=== PATIENT | female | born 1945 | race Caucasian/White ===

== ENCOUNTER 2017-12-24 02:39 | Outpatient (RCR) | payer MEDICARE, MEDICAID, SELFPAY ==
[2017-12-24] MEDS: Normal Saline Flush 10 ML SYR IVP (10:00)
[2017-12-24 10:12] LABS: Absolute Basophil Count 0.04 k/cumm (0.0-0.2); Absolute Eosinophil Count 0.11 k/cumm (0.0-0.7); Absolute Lymphocyte Count 0.67 k/cumm (1.2-3.4); Absolute Monocyte Count 0.69 k/cumm (0.11-0.7); Absolute Neutrophil Count 4.66 k/cumm (1.2-6.7); Basophils % 0.6; Eosinophils % 1.8; HCT 35.6 % (36.0-46.0); HGB 11.9 g/dL (12.0-15.5); Immature Grans % 1.6; Lymphocytes % 10.7; Mean Corp. HGB Concentration 33.4 g/dL (32.0-36.0); Mean Corpuscular Hemoglobin 31.4 pg (27.0-33.0); Mean Corpuscular Volume 93.9 fL (80-95); Mean Platelet Volume 11.1 fL (8.0-11.0); Neutrophils % 74.3; Platelet Count 151 x1000/uL (130-400); RBC 3.79 m/cumm (4.00-5.20); RBC Distribution Width 14.8 % (11.7-14.6); White Blood Cell Count 6.27 k/cumm (4.4-10.8)
[2017-12-24 10:25] LABS: ALT 52 U/L (12-78); AST 45 U/L (15-37); Albumin 2.5 g/dL (3.4-5.0); Alkaline Phosphatase 134 U/L (46-116); Anion Gap 8.6 mmol/L (3-11); BUN 6 mg/dL (7-18); Bilirubin, Total 0.6 mg/dL (0.2-1.0); CO2 26.4 mmol/L (21.0-32.0); CREATININE 0.65 mg/dL (0.55-1.02); Calcium 8.6 mg/dL (8.5-10.1); Chloride 99 mmol/L (98-107); Glucose 189 mg/dL (70-100); Magnesium 1.8 mg/dL (1.8-2.4); Potassium 3.5 mmol/L (3.5-5.1); Sodium 134 mmol/L (136-145); Total Protein 6.4 g/dL (6.4-8.2)
[2017-12-31 09:59] LABS: Abs Immature Grans 0.14 k/cumm (0.0-0.09); HGB 11.4 g/dL (12.0-15.5); Mean Corp. HGB Concentration 33.5 g/dL (32.0-36.0); Mean Corpuscular Volume 92.4 fL (80-95); Platelet Count 120 x1000/uL (130-400); RBC 3.68 m/cumm (4.00-5.20); White Blood Cell Count 4.13 k/cumm (4.4-10.8)
[2017-12-31] MEDS: Normal Saline Flush 10 ML SYR IVP (09:59)
[2017-12-31 10:09] LABS: ALT 28 U/L (12-78); AST 29 U/L (15-37); Albumin 2.6 g/dL (3.4-5.0); Alkaline Phosphatase 108 U/L (46-116); Anion Gap 9.2 mmol/L (3-11); BUN 7 mg/dL (7-18); Bilirubin, Total 0.6 mg/dL (0.2-1.0); CO2 26.8 mmol/L (21.0-32.0); Calcium 8.9 mg/dL (8.5-10.1); Chloride 101 mmol/L (98-107); Glucose 183 mg/dL (70-100); Magnesium 1.6 mg/dL (1.8-2.4); Potassium 3.5 mmol/L (3.5-5.1); Sodium 137 mmol/L (136-145); Total Protein 6.3 g/dL (6.4-8.2)
[2017-12-31 10:37] LABS: Absolute Eosinophil Count 0.04 k/cumm (0.0-0.7); Absolute Lymphocyte Count 0.83 k/cumm (1.2-3.4); Absolute Monocyte Count 0.25 k/cumm (0.11-0.7); Absolute Neutrophil Count 2.85 k/cumm (1.2-6.7); Atypical Lymphocytes % 2
[2017-12-31 10:38] LABS: Diff Comment Manual Differential; RBC Morphology Normal
[2018-01-01 12:18] LABS: CA 19-9 163 U/mL (<35)
[2018-01-14] MEDS: Normal Saline Flush 10 ML SYR IVP (10:10)
[2018-01-14 10:39] LABS: Abs Immature Grans 0.32 k/cumm (0.0-0.09); HCT 36.2 % (36.0-46.0); HGB 11.6 g/dL (12.0-15.5); Mean Corpuscular Hemoglobin 30.1 pg (27.0-33.0); Mean Platelet Volume 10.8 fL (8.0-11.0); Platelet Count 169 x1000/uL (130-400); RBC 3.85 m/cumm (4.00-5.20); RBC Distribution Width 17.1 % (11.7-14.6); White Blood Cell Count 8.33 k/cumm (4.4-10.8)
[2018-01-14 10:56] LABS: Absolute Basophil Count 0.08 k/cumm (0.0-0.2); Absolute Lymphocyte Count 0.75 k/cumm (1.2-3.4); Absolute Monocyte Count 1.58 k/cumm (0.11-0.7); Absolute Neutrophil Count 5.58 k/cumm (1.2-6.7); Atypical Lymphocytes % 1
[2018-01-14 10:57] LABS: ALT 22 U/L (12-78); AST 21 U/L (15-37); Albumin 2.7 g/dL (3.4-5.0); Alkaline Phosphatase 124 U/L (46-116); Anion Gap 6.8 mmol/L (3-11); Anisocytosis 2+; BUN 11 mg/dL (7-18); Bilirubin, Total 0.6 mg/dL (0.2-1.0); CO2 26.2 mmol/L (21.0-32.0); CREATININE 0.66 mg/dL (0.55-1.02); Calcium 8.4 mg/dL (8.5-10.1); Chloride 102 mmol/L (98-107); Diff Comment Manual Differential; Glucose 138 mg/dL (70-100); Magnesium 1.9 mg/dL (1.8-2.4); Ovalocytes 2+; Poikilocytes 1+; Polychromasia Present; Potassium 3.5 mmol/L (3.5-5.1); Sodium 135 mmol/L (136-145); Total Protein 6.1 g/dL (6.4-8.2)
[2018-01-15 11:38] LABS: CA 19-9 193 U/mL (<35)
== END 2018-01-17 ==
LOC: INF 02:54
PROVIDERS: PCP Neuromusculoskeletal Medicine & OMM; Visit Provider Internal Medicine
DX: C25.9 Malignant neoplasm of pancreas, unspecified (principal); C77.2 Secondary and unspecified malignant neoplasm of intra-abdominal lymph nodes; Z45.2 Encounter for adjustment and management of vascular access device
CPT/HCPCS: 36591 ×2; 80053; 83735; 85025; 86301

== ENCOUNTER 2018-02-11 01:33 | Outpatient (RCR) | payer MEDICARE, MEDICAID, SELFPAY ==
[2018-01-21] MEDS: Normal Saline Flush 10 ML SYR IVP (10:20)
[2018-01-21 10:42] LABS: Abs Immature Grans 0.31 k/cumm (0.0-0.09); HCT 35.1 % (36.0-46.0); HGB 11.8 g/dL (12.0-15.5); Mean Corp. HGB Concentration 33.6 g/dL (32.0-36.0); Mean Corpuscular Hemoglobin 31.1 pg (27.0-33.0); Mean Corpuscular Volume 92.4 fL (80-95); Mean Platelet Volume 11.1 fL (8.0-11.0); Platelet Count 154 x1000/uL (130-400); RBC Distribution Width 16.5 % (11.7-14.6)
[2018-01-21 11:04] LABS: ALT 37 U/L (12-78); AST 57 U/L (15-37); Albumin 2.7 g/dL (3.4-5.0); Alkaline Phosphatase 125 U/L (46-116); Anion Gap 4.6 mmol/L (3-11); BUN 10 mg/dL (7-18); Bilirubin, Total 0.7 mg/dL (0.2-1.0); CO2 27.4 mmol/L (21.0-32.0); CREATININE 0.85 mg/dL (0.55-1.02); Calcium 8.8 mg/dL (8.5-10.1); Chloride 101 mmol/L (98-107); Glucose 210 mg/dL (70-100); Magnesium 1.7 mg/dL (1.8-2.4); Potassium 3.7 mmol/L (3.5-5.1); Sodium 133 mmol/L (136-145); Total Protein 6.3 g/dL (6.4-8.2)
[2018-01-21 11:06] LABS: Absolute Basophil Count 0.14 k/cumm (0.0-0.2); Absolute Eosinophil Count 0.07 k/cumm (0.0-0.7); Absolute Lymphocyte Count 0.79 k/cumm (1.2-3.4); Absolute Monocyte Count 0.72 k/cumm (0.11-0.7); Absolute Neutrophil Count 5.26 k/cumm (1.2-6.7); Atypical Lymphocytes % 1
[2018-01-21 11:07] LABS: Anisocytosis 1+; Diff Comment Manual Differential; Nucleated RBC 1 /100WBC; Poikilocytes 1+; Polychromasia Present
[2018-01-28] MEDS: Normal Saline Flush 10 ML SYR IVP (10:05)
[2018-01-28 10:23] LABS: HCT 31.9 % (36.0-46.0); HGB 10.6 g/dL (12.0-15.5); Mean Corp. HGB Concentration 33.2 g/dL (32.0-36.0); Mean Corpuscular Hemoglobin 30.3 pg (27.0-33.0); Mean Corpuscular Volume 91.1 fL (80-95); Platelet Count 102 x1000/uL (130-400); White Blood Cell Count 3.29 k/cumm (4.4-10.8)
[2018-01-28 10:41] LABS: Absolute Basophil Count 0.03 k/cumm (0.0-0.2); Absolute Eosinophil Count 0.07 k/cumm (0.0-0.7); Absolute Lymphocyte Count 0.56 k/cumm (1.2-3.4); Atypical Lymphocytes % 0; Diff Comment Manual Differential; Nucleated RBC 2 /100WBC; RBC Morphology Normal
[2018-01-28 10:46] LABS: ALT 24 U/L (12-78); AST 22 U/L (15-37); Albumin 2.7 g/dL (3.4-5.0); Alkaline Phosphatase 121 U/L (46-116); Anion Gap 8.9 mmol/L (3-11); BUN 7 mg/dL (7-18); Bilirubin, Total 0.9 mg/dL (0.2-1.0); CO2 26.1 mmol/L (21.0-32.0); CREATININE 0.67 mg/dL (0.55-1.02); Calcium 8.7 mg/dL (8.5-10.1); Chloride 101 mmol/L (98-107); Glucose 198 mg/dL (70-100); Potassium 3.5 mmol/L (3.5-5.1); Sodium 136 mmol/L (136-145); Total Protein 6.4 g/dL (6.4-8.2)
[2018-01-29 10:05] LABS: CEA 2.3 ng/ml
== END 2018-02-16 23:59 | disposition home or self-care (01) ==
LOC: INF 01:33
PROVIDERS: PCP Neuromusculoskeletal Medicine & OMM; Visit Provider Internal Medicine
DX: C25.9 Malignant neoplasm of pancreas, unspecified (principal); Z45.2 Encounter for adjustment and management of vascular access device; C77.2 Secondary and unspecified malignant neoplasm of intra-abdominal lymph nodes
CPT/HCPCS: 36591; 80053; 82378; 83735; 85025

== ENCOUNTER 2018-03-18 01:12 | Outpatient (RCR) | payer MEDICARE, MEDICAID, SELFPAY ==
[2018-02-18] MEDS: Normal Saline Flush 10 ML SYR IVP (10:25)
[2018-02-18 10:47] LABS: Abs Immature Grans 0.02 k/cumm (0.0-0.09); Absolute Basophil Count 0.07 k/cumm (0.0-0.2); Absolute Lymphocyte Count 0.63 k/cumm (1.2-3.4); Absolute Monocyte Count 0.93 k/cumm (0.11-0.7); Absolute Neutrophil Count 7.27 k/cumm (1.2-6.7); Basophils % 0.8; Eosinophils % 2.2; HCT 36.4 % (36.0-46.0); HGB 11.6 g/dL (12.0-15.5); Immature Grans % 0.2; Lymphocytes % 6.9; Mean Corp. HGB Concentration 31.9 g/dL (32.0-36.0); Mean Corpuscular Volume 97.3 fL (80-95); Monocytes % 10.2; Neutrophils % 79.7; Platelet Count 151 x1000/uL (130-400); RBC 3.74 m/cumm (4.00-5.20); RBC Distribution Width 18.1 % (11.7-14.6); White Blood Cell Count 9.12 k/cumm (4.4-10.8)
[2018-02-18 11:04] LABS: ALT 19 U/L (12-78); AST 15 U/L (15-37); Albumin 2.8 g/dL (3.4-5.0); Alkaline Phosphatase 145 U/L (46-116); BUN 19 mg/dL (7-18); Bilirubin, Total 0.8 mg/dL (0.2-1.0); CREATININE 0.77 mg/dL (0.55-1.02); Calcium 8.7 mg/dL (8.5-10.1); Chloride 104 mmol/L (98-107); Glucose 229 mg/dL (70-100); Potassium 3.7 mmol/L (3.5-5.1); Sodium 139 mmol/L (136-145); Total Protein 6.2 g/dL (6.4-8.2)
[2018-02-19 12:40] LABS: CA 19-9 2246 U/mL (<35)
[2018-03-18] MEDS: Normal Saline Flush 10 ML SYR IVP (12:05)
[2018-03-18 12:21] LABS: Abs Immature Grans 0.04 k/cumm (0.0-0.09); Absolute Basophil Count 0.01 k/cumm (0.0-0.2); Absolute Eosinophil Count 0.12 k/cumm (0.0-0.7); Absolute Lymphocyte Count 0.59 k/cumm (1.2-3.4); Absolute Monocyte Count 1.41 k/cumm (0.11-0.7); Absolute Neutrophil Count 12.48 k/cumm (1.2-6.7); Basophils % 0.1; Eosinophils % 0.8; HCT 41.9 % (36.0-46.0); HGB 13.8 g/dL (12.0-15.5); Immature Grans % 0.3; Mean Corp. HGB Concentration 32.9 g/dL (32.0-36.0); Mean Corpuscular Volume 91.1 fL (80-95); Mean Platelet Volume 10.4 fL (8.0-11.0); Monocytes % 9.6; Neutrophils % 85.2; Platelet Count 244 x1000/uL (130-400); RBC Distribution Width 16.1 % (11.7-14.6); White Blood Cell Count 14.65 k/cumm (4.4-10.8)
[2018-03-18 12:35] LABS: ALT 24 U/L (12-78); AST 23 U/L (15-37); Albumin 2.8 g/dL (3.4-5.0); Alkaline Phosphatase 119 U/L (46-116); Anion Gap 11.1 mmol/L (3-11); BUN 46 mg/dL (7-18); Bilirubin, Total 0.9 mg/dL (0.2-1.0); CO2 22.9 mmol/L (21.0-32.0); CREATININE 1.11 mg/dL (0.55-1.02); Chloride 99 mmol/L (98-107); Estimated GFR 48.46 (mL/min/1.73m2); Glucose 165 mg/dL (70-100); Potassium 5.4 mmol/L (3.5-5.1); Sodium 133 mmol/L (136-145); Total Protein 6.5 g/dL (6.4-8.2)
[2018-03-19 12:05] LABS: CEA 8.7 ng/ml
== END 2018-03-19 23:59 | disposition home or self-care (01) ==
LOC: INF 01:12
PROVIDERS: PCP Neuromusculoskeletal Medicine & OMM; Visit Provider Internal Medicine
DX: C25.9 Malignant neoplasm of pancreas, unspecified (principal); C77.2 Secondary and unspecified malignant neoplasm of intra-abdominal lymph nodes; Z45.2 Encounter for adjustment and management of vascular access device
CPT/HCPCS: 36591; 80053; 82378; 85025; 86301